=== PATIENT | female | born 1960 | race Caucasian/White ===

== ENCOUNTER 2024-07-19 19:38 | Emergency (ER) | payer MEDICARE, OTHER, SELFPAY ==
[2024-07-19 19:42] VITALS: BP 158/102
--- NOTE | 2024-07-19 19:42 | ED.MUSCINJ ---
HPI-Injury
<Nadja Sanders, SHELLFISH DREDGE OPERATOR - Last Filed: 07/19/24 21:34>
General
Chief Complaint: Musculo-Skeletal Complaint
Time Seen by Provider: 07/19/24 21:24
<True Leonard DO - Last Filed: 07/19/24 21:42>
General
Source: patient
Exam Limitations: none
History of Present Illness-Injury
Is this injury a work related problem?: No
Is pt an associate of [facility]/[place]?: No
Initial Injury comments:
See MDM
ED Provider Triage
<Nadja Sanders, SHELLFISH DREDGE OPERATOR - Last Filed: 07/19/24 21:34>
-
Patient seen by provider in Triage?: Seen in Triage
Attestation: A medical screening examination has been initiated by a qualified medical provider. Based on the assessment performed at this time, it has been determined that an emergent medical condition may exist and the patient has been informed
that further medical evaluation and possible additional diagnostic testing may be needed.
HPI: 63 yo at park playing with dog, threw a ball, on 30 ft horse lead, dog pulled on left arm pulled her down and dragged her with her right arm dragging behind her. When she got up her right arm 'was dragging.' like it was out of joint, 10 pain
GENERAL: Alert , in no apparent distress
EYE: No visual abnormalities.
ENT: No visible abnormalities.
LUNGS: No acute respiratory distress
NEUROLOGICAL: Alert and oriented
SKIN: Skin intact. No visible changes.
MUSCULOSKELETAL:Left arm w full ROM,no bony tenderness. Unable to move righ arm.
PSYCH: Normal and appropriate interaction.
This is a medical evaluation conducted in person to initiate diagnostic evaluation and provide initial therapeutics. Please see further documentation by the treating clinician.
Past History
<Nadja Sanders, SHELLFISH DREDGE OPERATOR - Last Filed: 07/19/24 21:34>
Past History
ED Past Medical History: Other (Possible MS 20 years ago dx) and Other (Known brain aneurysms)
ED Past Surgical History: Orthopedic
Social History
Tobacco: Former smoker
Alcohol: None
Drug: None
Personal: Single
Living: alone
Employment: Not employed
Family History
Family History: Other (Mother with breast cancer)
Phy Exam
<True Leonard, DO - Last Filed: 07/19/24 21:42>
Physical Exam
Physical Exam:
See MDM
Injury Course
<Nadja Sanders, SHELLFISH DREDGE OPERATOR - Last Filed: 07/19/24 21:34>
Orders/Labs/Results
Orders:
Orders
07/19/24 19:40
Shoulder, Right, Trauma [CR Shoulder, Trauma - Right] Urgent
Comment:
Reason For Exam: fall, right shoulder injury with deformity.
07/19/24 21:34
Shoulder Immobilizer Right- Tx ONCE
Ketorolac [Toradol] 30 mg IM NOW STA
Oxycodone/Acetaminophen [Percocet 5/325] 1 tablet PO NOW STA
<True Leonard, DO - Last Filed: 07/19/24 21:42>
Orders/Labs/Results
Orders:
Orders
07/19/24 19:40
Shoulder, Right, Trauma [CR Shoulder, Trauma - Right] Urgent
Comment:
Reason For Exam: fall, right shoulder injury with deformity.
07/19/24 21:34
Shoulder Immobilizer Right- Tx ONCE
Ketorolac [Toradol] 30 mg IM NOW STA
Oxycodone/Acetaminophen [Percocet 5/325] 1 tablet PO NOW STA
<True Leonard, DO - Last Filed: 07/19/24 21:42>
MDM/Problems Addressed
Differential Diagnosis Includes:
HPI and MDM Narrative:
63-year-old female presenting with right shoulder pain. Patient was holding a retractable leash on her left hand. She threw a ball and unknowingly threw it farther than the retractable leash could go. The dog lunged forward and the patient fell
down landing on her right shoulder. She is left-hand dominant
She denies numbness or tingling or head trauma. On exam, she has significant tenderness to her right shoulder but the distal extremity is neurovascularly intact. X-ray consistent with a humeral neck fracture. Expectedly, her range of motion is
significantly limited due to pain.
Will place in immobilizer and provide pain medicine discussed follow-up with orthopedics
Physical exam
General: Well appearing and non-toxic
HEENT: protecting airway
Neck: appears supple
CV: No evidence of cyanosis
Resp: No accessory muscle use
Abd: Non-distended
Extremities: Swelling and tenderness to right shoulder. Decreased range of motion. Distal extremity neuro vascularly intact
Neuro: alert
Psych: Normal affect
Skin: Intact
Problems Addressed including Acute and Chronic Conditions affecting care:
1. Right humeral neck fracture
Acuity: acute
Prognosis: stable
Details: Will place in immobilizer and provide pain control. Discussed follow-up with orthopedic
Differential Diagnosis (but not limited to): Shoulder dislocation, humeral neck fracture, clavicle fracture, rotator cuff injury
Testing considered: CT head but there is no evidence to suggest intracranial hemorrhage
Drug therapy (if applicable): OTC meds, please see d/c instruction regarding Rx drugs
Amount and/or Complexity of Data Reviewed
Clinical info obtained from: Patient
External data reviewed: N/A
Labs I independently reviewed (but not limited to): N/A
Radiology: X-ray independently reviewed: Humeral neck fracture
Pulse Ox: not hypoxic
EKG independently reviewed: N/A
Crane Man: N/A
Critical Care: N/A
Risk of Complication:
Social Determinants of health: Good social support
Discussed with other providers: N/A
Escalation of Care includes Admit/Obs: After being observed in the Emergency Department, pt stable for discharge.
Occasional wrong word or 'sound a like' substitutions may have occurred due to the inherent limitations of voice recognition software. Read the chart carefully and recognize, using context, where substitutions have occurred.
<True Leonard DO - Last Filed: 07/19/24 21:42>
*Critical Care Note
Total Time (30-74mins, 75-104mins- exclusive of procedures): Not Applicable
ED Attending Note
<Nadja Sanders SHELLFISH DREDGE OPERATOR - Last Filed: 07/19/24 21:34>
-
Portions of this chart may have been created with voice recognition software.� Occasional wrong word or��sound alike� substitutions may have occurred due to the inherent limitations of voice recognition software.
Discharge Plan
Departure
Date of Disposition: 07/19/24
Time of Disposition: 21:39
Patient with high blood pressure during this ER visit?: Yes
Discharge Problem:
Fracture of neck of humerus
Instructions: Upper Arm Fracture ED, BLOOD PRESSURE
Prescriptions:
New
diclofenac potassium 50 mg tablet
50 mg PO BID Qty: 20 0RF
oxycodone 5 mg tablet
5 mg PO Q8H PRN (Reason: Pain) Qty: 14 0RF
No Action
cyanocobalamin (vitamin B-12) 1,000 MCG tablet
1,000 mcg PO BID
ascorbic acid (vitamin C) [Vitamin C] 500 MG tablet
500 mg PO DAILY
vitamin B complex 1 TAB tablet
1 tab PO DAILY
cholecalciferol (vitamin D3) 1,000 UNITS tablet
1,000 units PO DAILY
Lactobac 2-Bifido 1-S. therm [High Potency Probiotic] 1 CAP capsule
1 cap PO TID
omega 0-rdh-dus-fish oil [Fish Oil] 1 EACH capsule
1 cap PO BID
doxycycline hyclate 100 MG capsule
100 mg PO Q12 Qty: 12 0RF
triamcinolone acetonide 1 APPLIC ointment
1 applic topical TID Qty: 1 1RF
calamine-zinc oxide 180 ML lotion
10 ml topical TID 0RF
Referrals:
Magno Evangelista MD [Active] -
Activity Restrictions/Additional Instructions:
Please return for any worsening symptoms.
You may return at any time if you have further concerns.
Please call the orthopedist to make first available appointment.
You were given a prescription for narcotics. If you require this pain medicine, please take a daily [id number] stool softener to avoid constipation.
Thank you for choosing [facility].
Interventions
Interventions:
*Risk Screen - Suicide Last Done: 07/19/24 19:42
*General Assessment Last Done: 07/19/24 21:26
*Neglect/Abuse Screening Last Done: 07/19/24 19:42
ED-Musculoskeletal Assessment Last Done: 07/19/24 20:25
Discharge Date and Time
Print Language: URDU
[2024-07-19] MEDS: TORADOL 30 MG IM (21:40)
[2024-07-19] MEDS: PERCOCET 5/325 1 TABLET PO (21:43)
[2024-07-19 22:06] VITALS: BP 152/88
[2024-07-19 22:07] VITALS: BP 152/88
== END 2024-07-19 22:10 | disposition home or self-care (01) ==
LOC: EMR 19:38
PROVIDERS: EMERGENCY PHYSICIAN Student in an Organized Health Care Education/Training Program; FAMILY PHYSICIAN Family Medicine
DX: S42.211A Unspecified displaced fracture of surgical neck of right humerus, initial encounter for closed fracture (principal); W19.XXXA Unspecified fall, initial encounter; Z87.891 Personal history of nicotine dependence
CPT/HCPCS: 96372; 99284; 73030

== ENCOUNTER → 2024-09-07 10:27 | Outpatient (REF) | payer MEDICARE, OTHER, SELFPAY | LOC: RAD 10:27 | PROVIDERS: ATTENDING PHYSICIAN Physician Assistant Medical; FAMILY PHYSICIAN Family Medicine | DX: M25.571 Pain in right ankle and joints of right foot (principal); M25.471 Effusion, right ankle | CPT/HCPCS: 73610 ==

== ENCOUNTER 2024-10-19 10:48 | Outpatient (RCR) | payer MEDICARE, OTHER, SELFPAY | END 2024-10-19 23:59 | disposition home or self-care (01) | LOC: RPT 10:48 | PROVIDERS: ATTENDING PHYSICIAN Physician Assistant Surgical; FAMILY PHYSICIAN Family Medicine | DX: M25.522 Pain in left elbow (principal); S42.201D Unspecified fracture of upper end of right humerus, subsequent encounter for fracture with routine healing; X58.XXXD Exposure to other specified factors, subsequent encounter; M25.571 Pain in right ankle and joints of right foot; Z73.6 Limitation of activities due to disability | CPT/HCPCS: 97010; 97110; 97112; 97140; 97162 ==

== ENCOUNTER 2024-11-11 12:49 | Outpatient (RCR) | payer MEDICARE, OTHER, SELFPAY | END 2024-11-11 23:59 | disposition home or self-care (01) | LOC: RPT 12:49 | PROVIDERS: ATTENDING PHYSICIAN Physician Assistant Surgical; FAMILY PHYSICIAN Family Medicine | DX: M25.522 Pain in left elbow (principal); S42.201D Unspecified fracture of upper end of right humerus, subsequent encounter for fracture with routine healing; X58.XXXD Exposure to other specified factors, subsequent encounter; M25.571 Pain in right ankle and joints of right foot; M19.071 Primary osteoarthritis, right ankle and foot; Z73.6 Limitation of activities due to disability; G35 Multiple sclerosis; W18.39XD Other fall on same level, subsequent encounter | CPT/HCPCS: 97110; 97112 ==

== ENCOUNTER 2025-09-21 06:31 | Outpatient (RCR) | payer MEDICARE, OTHER, SELFPAY | END 2025-09-21 23:59 | disposition home or self-care (01) | LOC: RPT 06:31 | PROVIDERS: ATTENDING PHYSICIAN Physician Assistant Surgical; FAMILY PHYSICIAN Family Medicine | DX: M25.562 Pain in left knee (principal); S93.491D Sprain of other ligament of right ankle, subsequent encounter; Z73.6 Limitation of activities due to disability; R26.2 Difficulty in walking, not elsewhere classified; M62.81 Muscle weakness (generalized); S83.92XD Sprain of unspecified site of left knee, subsequent encounter; X58.XXXD Exposure to other specified factors, subsequent encounter | CPT/HCPCS: 97110; 97162 ==